=== PATIENT | female | born 1955 | race Caucasian/White ===

== ENCOUNTER 2019-01-14 11:07 | Emergency (ER) | payer OTHER ==
[2019-01-14] MEDS ORDERED: TOBRAMYCIN 0.3% OPHTH DROPS 5 ML BTL LEFT EYE STA (11:57)
[2019-01-14] MEDS ORDERED: DEXAMETHASONE SOD PHOSPHATE 10 MG/ML 1 ML VIAL IV STA (11:58)
--- NOTE | 2019-01-14 12:31 | ED ---
Eye Problem HPI - General Chief complaint: Eye Problems Stated complaint: eye swelled shut Time Seen by Provider: 01/14/19 11:36 Source: patient, RN notes reviewed, old records reviewed Mode of arrival: ambulatory Limitations: no limitations - History of Present Illness Initial comments: This is a 61-year-old female the ER for evaluation. Patient resents today for evaluation of left eye pain and swelling. Patient has no significant travel history or sick contacts. Admits to some blurry vision but no change in vision. Bowel pain anteriorly. Patient recently started with conjunctivitis redness of eye and woke up this morning with increased swelling. No fevers. Her left eye at this point is. Swollen shut MD chief complaint: eye pain (Left with swelling), eye redness ((Conjunctivitis) -: days(s) Onset Description: gradual Location: left eye Place: home If Injury: none Eye Symptoms: itching, discharge, blurry vision Severity: moderate Severity scale (1-10): 4 If Pain, Quality: burning Consistency: constant Context: recent uri Associated Symptoms: none Treatments Prior to Arrival: none - Related Data Home Medications Medication Instructions Recorded Confirmed Azelastine HCl 2 sprays EA NOSTRIL DAILY 01/14/19 01/14/19 Calcitriol [Rocaltrol] 0.25 mcg PO TID 01/14/19 01/14/19 Calcium Carbonate 4,800 mg PO DAILY 01/14/19 01/14/19 Cevimeline [Evoxac] 30 mg PO BID 01/14/19 01/14/19 Estradiol [Vivelle-Dot 0.0375 MG] 1 patch TRANSDERM TUFR 01/14/19 01/14/19 Folic Acid 1 mg PO DAILY 01/14/19 01/14/19 Levothyroxine Sodium [Synthroid] 250 mcg PO DAILY 01/14/19 01/14/19 Loteprednol Etabonate [Alrex] 1 drop BOTH EYES BID PRN 01/14/19 01/14/19 Magnesium 200 mg PO DAILY 01/14/19 01/14/19 Methotrexate/Pf [Rasuvo 10 mg/0.2 10 mg SQ MO 01/14/19 01/14/19 ml Autoinj] Penfield-3 Fatty Acids/Fish Oil [Fish 1 cap PO DAILY 01/14/19 01/14/19 Oil 1,000 mg Softgel] Promethazine HCl [Phenergan] 100 mg PO DAILY 01/14/19 01/14/19 Vitamin B Complex 1 cap PO DAILY 01/14/19 01/14/19 Zolpidem [Ambien] 5 - 10 mg PO HS PRN 01/14/19 01/14/19 cycloSPORINE [Restasis] 1 drop BOTH EYES BID 01/14/19 01/14/19 metFORMIN HCL [Glucophage] 500 mg PO DAILY 01/14/19 01/14/19 valACYclovir [Valtrex] 500 mg PO DAILY 01/14/19 01/14/19 Allergies Allergy/AdvReac Type Severity Reaction Status Date / Time codeine Allergy Dyspnea Verified 01/14/19 11:46 nitrofurantoin Allergy Rash/Hives Verified 01/14/19 11:46 [From Macrobid] Sulfa (Sulfonamide Allergy Rash/Hives Verified 01/14/19 11:46 Antibiotics) Review of Systems ROS Statement: Those systems with pertinent positive or pertinent negative responses have been documented in the HPI. ROS Other: All systems not noted in ROS Statement are negative. Past Medical History Past Medical History: Thyroid Disorder Additional Past Medical History / Comment(s): hypocalcemia History of Any Multi-Drug Resistant Organisms: None Reported Past Surgical History: Appendectomy, Tonsillectomy Additional Past Surgical History / Comment(s): thyroidectomy,ectopic preg,facial fx repair Past Psychological History: No Psychological Hx Reported Smoking Status: Never smoker Past Alcohol Use History: Occasional Past Drug Use History: None Reported General Exam - General Exam Comments Initial Comments: Left eye edema, mild stranding sialitis, no proptosis no significant tenderness, conjunctiva left eye is erythematous Slit-lamp exam as well as foreseen stain is negative Limitations: no limitations General appearance: alert, in no apparent distress Head exam: Present: atraumatic, normocephalic, normal inspection Eye exam: Present: normal appearance, PERRL, EOMI. Absent: scleral icterus, conjunctival injection, periorbital swelling ENT exam: Present: normal exam, mucous membranes moist Neck exam: Present: normal inspection. Absent: tenderness, meningismus, lymphadenopathy Respiratory exam: Present: normal lung sounds bilaterally. Absent: respiratory distress, wheezes, rales, rhonchi, stridor Cardiovascular Exam: Present: regular rate, normal rhythm, normal heart sounds. Absent: systolic murmur, diastolic murmur, rubs, gallop, clicks GI/Abdominal exam: Present: soft, normal bowel sounds. Absent: distended, tenderness, guarding, rebound, rigid Extremities exam: Present: normal inspection, full ROM, normal capillary refill. Absent: tenderness, pedal edema, joint swelling, calf tenderness Back exam: Present: normal inspection Neurological exam: Present: alert, oriented X3, CN II-XII intact Psychiatric exam: Present: normal affect, normal mood Skin exam: Present: warm, dry, intact, normal color. Absent: rash Course Vital Signs 01/14/19 11:21 Temperature 98.3 F Pulse Rate 70 Respiratory 18 Rate Blood Pressure 144/88 O2 Sat by Pulse 99 Oximetry - Reevaluation(s) Reevaluation #1: 01/14/19 12:30 Medical records reviewed Medical Decision Making - Medical Decision Making 63 female to the ED co eye swelling, preseptal cellulitis, OK for DC on abx - Lab Data Result diagrams: 01/14/19 11:50 Lab Results 01/14/19 01/14/19 Range/Units 11:50 11:50 WBC 6.1 (3.8-10.6) k/uL RBC 4.61 (3.80-5.40) m/uL Hgb 14.9 (11.4-16.0) gm/dL Hct 45.3 (34.0-46.0) % MCV 98.3 (80.0-100.0) fL MCH 32.3 (25.0-35.0) pg MCHC 32.9 (31.0-37.0) g/dL RDW 13.5 (11.5-15.5) % Plt Count 261 (150-450) k/uL Neutrophils % 64 % Lymphocytes % 21 % Monocytes % 10 % Eosinophils % 3 % Basophils % 1 % Neutrophils # 3.9 (1.3-7.7) k/uL Lymphocytes # 1.3 (1.0-4.8) k/uL Monocytes # 0.6 (0-1.0) k/uL Eosinophils # 0.2 (0-0.7) k/uL Basophils # 0.1 (0-0.2) k/uL Ionized Calcium Frandy 5.0 (4.5-5.3) mg/dL - Radiology Data Radiology results: report reviewed (CT orbits shows preseptal cellulitis), image reviewed Disposition Clinical Impression: Preseptal cellulitis Disposition: HOME SELF-CARE Condition: Good Instructions (If sedation given, give patient instructions): Periorbital Cellulitis in Adults (ED) Is patient prescribed a controlled substance at d/c from ED?: No Referrals: Nonstaff,Physician [Primary Care Provider] - 1-2 days
[2019-01-14 13:12] LABS: Basophils # (A) 0.1 k/uL (0-0.2); Basophils % (A) 1 %; Eosinophils # (A) 0.2 k/uL (0-0.7); Eosinophils % (A) 3 %; HCT 45.3 % (34.0-46.0); HGB 14.9 gm/dL (11.4-16.0); Lymphocytes # (A) 1.3 k/uL (1.0-4.8); Lymphocytes % (A) 21 %; MCH 32.3 pg (25.0-35.0); MCHC 32.9 g/dL (31.0-37.0); MCV 98.3 fL (80.0-100.0); Mean Platelet Volume 7.3; Monocytes # (A) 0.6 k/uL (0-1.0); Monocytes % (A) 10 %; Neutrophils # (A) 3.9 k/uL (1.3-7.7); Neutrophils % (A) 64 %; Platelet Count 261 k/uL (150-450); RBC 4.61 m/uL (3.80-5.40); RDW 13.5 % (11.5-15.5); WBC 6.1 k/uL (3.8-10.6)
--- NOTE | 2019-01-14 13:26 | CT ---
EXAMINATION TYPE: CT orbits wo con DATE OF EXAM: 01/14/2019 COMPARISON: None HISTORY: 63-year-old female Eye swollen shut TECHNIQUE: Contiguous axial scanning of the orbits without IV contrast. Coronal reconstructions perfo rmed. CT DLP: 232.5 mGycm Automated exposure control for dose reduction was used. FINDINGS: There is no abnormality of visualized intracranial structures. There is no evidence of fractures. Optic canals appear normal. Optic nerves are symmetrical bilaterally. There is no intraocular abnorm ality. Extraocular muscles are symmetrical bilaterally. There is no retrobulbar orbital mass. The sella shows no gross abnormal body. There is slight asymmetric left-sided preseptal soft tissue thickening. Scattered mild mucosal thickening ethmoid air cells. Slight leftward nasal septal deviation. Mastoid air cells well pneumatized. Reformatted images confirm above findings. IMPRESSION: 1. SLIGHT ASYMMETRIC LEFT-SIDED PRESEPTAL SOFT TISSUE THICKENING. THIS IS NONSPECIFIC, POSSIBLE MILD PRESEPTAL CELLULITIS. NO POSTSEPTAL INVOLVEMENT. 2. SCATTERED MILD CHRONIC ETHMOID SINUS DISEASE.
[2019-01-14 13:31] LABS: ALT 11 U/L (9-52); AST 32 U/L (14-36); African American GFR (CKD) 77 (>60 ml/min/1.73 sqM); Albumin 4.7 g/dL (3.5-5.0); Alkaline Phosphatase 70 U/L (38-126); Anion Gap 9 mmol/L; Blood Urea Nitrogen 23 mg/dL (7-17); C Reactive Protein <5.0 mg/L (<10.0); Calcium 9.5 mg/dL (8.4-10.2); Carbon Dioxide 27 mmol/L (22-30); Chloride 104 mmol/L (98-107); Glucose 83 mg/dL (74-99); Magnesium 2.2 mg/dL (1.6-2.3); Sodium 140 mmol/L (137-145); Total Bilirubin 0.8 mg/dL (0.2-1.3); Total Protein 7.4 g/dL (6.3-8.2)
[2019-01-14 13:44] LABS: Potassium 4.8 mmol/L (3.5-5.1)
[2019-01-14 14:00] VITALS: BP 141/81; PULSE 71; RESP 16; TEMP 96.7
== END 2019-01-14 14:00 | disposition home or self-care (01) ==
LOC: EC 11:07
DX: L03.213 Periorbital cellulitis (principal); E07.9 Disorder of thyroid, unspecified; E83.51 Hypocalcemia; Z79.890 Hormone replacement therapy; Z79.84 Long term (current) use of oral hypoglycemic drugs; Z79.899 Other long term (current) drug therapy; Z88.5 Allergy status to narcotic agent; Z88.1 Allergy status to other antibiotic agents; Z88.2 Allergy status to sulfonamides
CPT/HCPCS: 36415; 80053; 82330; 83735; 84100; 85025; 86140; 70480; 99284; 96374; J1100